=== PATIENT | female | born 1990 | race American Indian/Alaskan Native ===

== ENCOUNTER 2017-07-17 10:07 | Emergency (ER) | payer OTHER ==
[2017-07-17 10:43] VITALS: BP 128/78
[2017-07-17 11:09] LABS: Basophils % (Auto) 0.5 % (0.0-1.8); Eosinophils # (Auto) 0.1 K/mm3 (0.0-0.4); Eosinophils % (Auto) 1.2 % (0.0-4.3); Hematocrit 40.8 % (30.3-42.9); Hemoglobin 13.5 gm/dl (10.1-14.3); Lymphocytes # (Auto) 2.1 K/mm3 (1.2-5.4); Lymphocytes % (Auto) 36.7 % (13.4-35.0); Mean Corpuscular HGB Conc 33 % (30-34); Mean Corpuscular Hemoglobin 29 pg (28-32); Mean Corpuscular Volume 86 fl (79-97); Monocytes # (Auto) 0.4 K/mm3 (0.0-0.8); Monocytes % (Auto) 6.6 % (0.0-7.3); Platelet Count 294 K/mm3 (140-440); Red Blood Count 4.75 M/mm3 (3.65-5.03); Red Cell Distribution Width 14.2 % (13.2-15.2)
[2017-07-17 11:18] LABS: Alanine Aminotransferase 16 units/L (7-56); Albumin 4.3 g/dL (3.9-5); BUN/Creatinine Ratio 13; Blood Urea Nitrogen 9 mg/dL (7-17); Calcium 9.1 mg/dL (8.4-10.2); Hemolysis Index 6; Lipase 22 units/L (13-60)
[2017-07-17] MEDS ORDERED: ZOFRAN IV ONE ×2 (11:52→15:36)
[2017-07-17] MEDS ORDERED: MORPHINE IV ONE ×2 (11:52→15:36)
--- NOTE | 2017-07-17 11:57 | Emergency Department Report ---
Blank Doc - Documentation Documentation: 26 y.o presents to er with severe periumbilical pain, radiating to both flanks, states pain is shark, 20/10, without alleviating or exacerbating factors. patient has not tried any medications for her symptoms. her symptoms started at 930 this morning. states no menstrual cycle since she is on the mirena. no dysuria, no hematuria, no diarrhea, does have nausea no vomiting.
[2017-07-17 11:58] LABS: Bilirubin,Urine NEG (Negative); Blood,Urine NEG (Negative); Color,Urine Yellow (Yellow); Protein,Urine <15 mg/dL mg/dL (Negative); Urobilinogen,Urine < 2.0 mg/dL (<2.0); WBC,Urine < 1.0 /HPF (0.0-6.0)
[2017-07-17 12:14] LABS: HCG Qualitative,Urine Negative (Negative)
--- NOTE | 2017-07-17 15:04 | Cat Scan Report ---
FINAL REPORT EXAM: CT ABDOMEN PELVIS WO CON HISTORY: severe periumbilical pain radiating to sides TECHNIQUE: CT examination of the ABDOMEN without IV contrast CT examination of the PELVIS without IV contrast PRIORS: None. FINDINGS: Smoothly marginated nonspecific small sclerotic focus in the left iliac wing may be a bone island. Normal noncontrast appearance of the liver, gallbladder, adrenals, pancreas, and spleen. Normal caliber aorta and IVC. Normal-appearing kidneys and visible ureteral segments, partly obscured in the pelvis by adjacent anatomy. Intact anterior abdominal wall without evidence of hernia. No umbilical hernia. Metal artifact partly obscures the umbilicus, limiting the examination. This may be related to umbilical jewelry. No retroperitoneal adenopathy. No mesenteric mass. Normal-appearing stomach and duodenum. No small bowel distention in the abdomen and pelvis. No pelvic free fluid. Normal-appearing urinary bladder, uterus, adnexae, and rectum. An IUD is in place in the central uterine cavity. Normal-appearing sigmoid colon. No gross ascites, free air, or colonic distention. Normal-appearing cecum and appendix. Nonspecific fatty mural stratification is present in the terminal ileum. IMPRESSION: Nonspecific fatty mural stratification in the terminal ileum may be related to diet, body habitus, or chronic ileitis. The differential includes inflammatory bowel disease. No definite CT evidence of umbilical abnormality although the umbilicus is partly obscured by metal artifact
--- NOTE | 2017-07-17 15:58 | Emergency Department Report ---
ED Abdominal Pain HPI - General Chief Complaint: Abdominal Pain Stated Complaint: ABD PAIN Time Seen by Provider: 07/17/17 12:50 Source: patient Mode of arrival: Ambulatory Limitations: No Limitations - History of Present Illness Initial Comments: 26-year-old -[place] female comes in with severe mid abdominal pain. Patient reports that the onset was this morning approximate 9:30 am. Patient reports she is has an IUD that is coming out on Sunday secondary to complications. Patient admits to nausea no vomiting pain is constant's. Umbilicus sharp and radiates to the left side no dysuria. No past medical history no diabetes or hypertension does not smoke and socially. MD Complaint: abdominal pain -: This morning Time: 09:30 Location: periumbilical Radiation: LLQ Severity: severe Severity scale (0 -10): 10 Quality: stabbing Consistency: constant Improves With: medication Associated Symptoms: nausea. denies: vomiting - Related Data LMP (females 10-50): other (IUD) Previous Rx's Medication Instructions Recorded Last Taken Type HYDROcodone/ACETAMINOPHEN [[place] 1 each PO Q6HR PRN #15 tablet 07/17/17 Unknown Rx 7.5-325 Tablet] Ondansetron [Zofran Odt] 4 mg PO Q8HR #9 tab.rapdis 07/17/17 Unknown Rx Prednisone [predniSONE 5 mg (6-Day 5 mg PO .TAPER #1 tab.ds.pk 07/17/17 Unknown Rx Pack, 21 Tabs)] Allergies Allergy/AdvReac Type Severity Reaction Status Date / Time blueberry Allergy Shortness Verified 07/17/17 10:40 of Breath grass pollen Allergy Shortness Verified 07/17/17 10:40 of Breath iodine Allergy Rash Verified 07/17/17 10:40 latex Allergy Rash Verified 07/17/17 10:40 shellfish derived Allergy Shortness Verified 07/17/17 10:40 of Breath SEAFOOD Allergy Shortness Uncoded 07/17/17 10:40 of Breath ED Review of Systems ROS: Stated complaint: ABD PAIN Other details as noted in HPI Constitutional: denies: chills, fever Eyes: denies: eye pain, eye discharge, vision change ENT: denies: ear pain, throat pain Respiratory: denies: cough, shortness of breath, wheezing Cardiovascular: denies: chest pain, palpitations Endocrine: no symptoms reported Gastrointestinal: abdominal pain, nausea. denies: vomiting Genitourinary: denies: urgency, dysuria, discharge Musculoskeletal: denies: back pain, joint swelling, arthralgia Skin: denies: rash, lesions Neurological: headache Psychiatric: denies: anxiety, depression Hematological/Lymphatic: denies: easy bleeding, easy bruising ED Past Medical Hx - Past Medical History Previous Medical History?: No - Surgical History Past Surgical History?: Yes Additional Surgical History: TONSILECTOMY - Social History Smoking Status: Never Smoker Substance Use Type: Alcohol - Medications Home Medications: Home Medications Medication Instructions Recorded Confirmed Last Taken Type HYDROcodone/ACETAMINOPHEN [[place] 1 each PO Q6HR PRN #15 tablet 07/17/17 Unknown Rx 7.5-325 Tablet] Ondansetron [Zofran Odt] 4 mg PO Q8HR #9 tab.rapdis 07/17/17 Unknown Rx Prednisone [predniSONE 5 mg (6-Day 5 mg PO .TAPER #1 tab.ds.pk 07/17/17 Unknown Rx Pack, 21 Tabs)] ED Physical Exam - General Limitations: No Limitations General appearance: other (nontoxic) - Head Head exam: Present: atraumatic, normocephalic - Eye Eye exam: Present: normal appearance - ENT ENT exam: Present: mucous membranes moist - Neck Neck exam: Present: normal inspection - Respiratory Respiratory exam: Present: normal lung sounds bilaterally. Absent: respiratory distress - Cardiovascular Cardiovascular Exam: Present: regular rate, normal rhythm. Absent: systolic murmur, diastolic murmur, rubs, gallop - GI/Abdominal GI/Abdominal exam: Present: soft, normal bowel sounds. Absent: distended, tenderness (mid abdomen pain) - Extremities Exam Extremities exam: Present: normal inspection - Back Exam Back exam: Present: normal inspection - Neurological Exam Neurological exam: Present: alert, oriented X3 - Psychiatric Psychiatric exam: Present: normal affect, normal mood - Skin Skin exam: Present: warm, dry, intact, normal color. Absent: rash ED Course Vital Signs 07/17/17 10:40 Temperature 98.4 F Pulse Rate 87 Respiratory 20 Rate Blood Pressure 128/78 O2 Sat by Pulse 100 Oximetry - Reevaluation(s) Reevaluation #1: 07/17/17 16:13 Patient reports that pain has improved with morphine. Nausea is improved with Zofran. ED Medical Decision Making - Lab Data Result diagrams: 07/17/17 10:45 07/17/17 10:45 - Radiology Data Radiology results: report reviewed, image reviewed FINDINGS: Smoothly marginated nonspecific small sclerotic focus in the left iliac wing may be a bone island. Normal noncontrast appearance of the liver, gallbladder, adrenals, pancreas, and spleen. Normal caliber aorta and IVC. Normal-appearing kidneys and visible ureteral segments, partly obscured in the pelvis by adjacent anatomy. Intact anterior abdominal wall without evidence of hernia. No umbilical hernia. Metal artifact partly obscures the umbilicus, limiting the examination. This may be related to umbilical jewelry. No retroperitoneal adenopathy. No mesenteric mass. Normal-appearing stomach and duodenum. No small bowel distention in the abdomen and pelvis. No pelvic free fluid. Normal-appearing urinary bladder, uterus, adnexae, and rectum. An IUD is in place in the central uterine cavity. Normal-appearing sigmoid colon. No gross ascites, free air, or colonic distention. Normal-appearing cecum and appendix. Nonspecific fatty mural stratification is present in the terminal ileum. IMPRESSION: Nonspecific fatty mural stratification in the terminal ileum may be related to diet, body habitus, or chronic ileitis. The differential includes inflammatory bowel disease. No definite CT evidence of umbilical abnormality although the umbilicus is partly obscured by metal artifact Transcribed By: JOSIE Dictated By: LOREN STEVE MD Electronically Authenticated By: LOREN STEVE MD Signed Date/Time: 07/17/171458 DD/ 58 TD/TT: 07/17/171458 - Medical Decision Making Patient's been evaluated for this provider fast heart is evaluated by Dr. Sloan. CT labs urinalysis morphine, Zofran has been ordered. Discussed with patient the results of the CT scan. Discussed the patient will place on prednisone and [place] for pain. Discussed with patient it is very important for her to follow up with financial aid advisor. Patient reports that she's having her IUD removed on Sunday. Patient is to return sooner if symptoms gets worse. Critical care attestation.: If time is entered above; I have spent that time in minutes in the direct care of this critically ill patient, excluding procedure time. ED Disposition Clinical Impression: Nausea Pain in the abdomen Qualifiers: Abdominal location: periumbilical Qualified Code(s): R10.33 - Periumbilical pain Disposition: DC-01 TO HOME OR SELFCARE Is pt being admited?: No Does the pt Need Aspirin: No Condition: Stable Instructions: Abdominal Pain (ED) Additional Instructions: Please take pain medication and prednisone as prescribed. Please increase her fluid intake and advance her diet as tolerated. Please follow-up with financial aid advisor as this is very important for reevaluation. Prescriptions: HYDROcodone/ACETAMINOPHEN [[place] 7.5-325 Tablet] 1 each PO Q6HR PRN #15 tablet PRN Reason: Pain Ondansetron [Zofran Odt] 4 mg PO Q8HR #9 tab.rapdis Prednisone [predniSONE 5 mg (6-Day Pack, 21 Tabs)] 5 mg PO .TAPER #1 tab.ds.pk Referrals: IKE GATES MD [Primary Care Provider] - 3-5 Days [facility] [Provider Group] - 3-5 Days [facility] [Provider Group] - 3-5 Days Forms: Work/School Release Form(ED), Accompanied Note
== END 2017-07-17 16:47 | disposition home or self-care (01) ==
LOC: ED 10:07
DX: R10.33 Periumbilical pain (principal); R11.0 Nausea; Z91.018 Allergy to other foods; Z91.048 Other nonmedicinal substance allergy status; Z91.041 Radiographic dye allergy status; Z91.040 Latex allergy status; Z91.013 Allergy to seafood
CPT/HCPCS: 36415; 74176; 80053; 81001; 81025; 83690; 85025; 96374; 96375; 96376; 99284; J2270; J2405

== ENCOUNTER 2017-08-06 18:13 | Emergency (ER) | payer OTHER ==
[2017-08-06 19:13] VITALS: BP 116/73
[2017-08-06] MEDS ORDERED: MOTRIN PO ONE (21:01)
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
== END 2017-08-06 22:15 | disposition home or self-care (01) ==
LOC: ED 18:13
DX: S13.4XXA Sprain of ligaments of cervical spine, initial encounter (principal); S39.012A Strain of muscle, fascia and tendon of lower back, initial encounter; G43.909 Migraine, unspecified, not intractable, without status migrainosus; V49.59XA Passenger injured in collision with other motor vehicles in traffic accident, initial encounter; Y93.89 Activity, other specified; Y92.89 Other specified places as the place of occurrence of the external cause; Y99.8 Other external cause status
CPT/HCPCS: 72125